=== PATIENT | female | born 1980 | race Caucasian/White ===

== ENCOUNTER 2021-05-23 07:34 | Day surgery (SDC) | payer OTHER ==
[~2021-05-23] VITALS: Ht 154.9 cm; Wt 86.9 kg
[~2021-05-23 07:34] MED LIST: ALBU90OI INH; AMOX500 PO; AZIT250 PO; CIPR500 PO; Flomax0.4 MG PO; HYDACE5 PO; IBUP400 PO; IBUP600 PO; PENVK500 PO; PRED20 PO; PROM25 PO; Percocet 5-3251 EACH PO; Zofran Odt8 MG SL
--- NOTE | 2021-05-23 10:20 | NUR ---
Ambulatory in Day Surgery. History, Chart, Medications and Allergies reviewed before start of procedure. Lungs clear T/O to Auscultation. Patient confirms NPO status and agrees with scheduled surgery. Pre-Op teaching done. Pt verbalizes understanding. REPORTS PT MAY HAVE IV IN RIGHT ARM SHE HAS BEEN DIFFICULT TO START AN IV ON.
--- NOTE | 2021-05-23 10:59 | NUR ---
PT DIFFICULT TO GET IV. DR JOSEPH STARTED IV IN RIGHT EJ.
--- NOTE | 2021-05-23 12:07 | NUR ---
PT PLACED DENTURES BACK IN MOUTH. NO GLASSES OR HEARING AID WITH PATIENT. PT STATES READY TO LEAVE. WILL GIVE BEDSIDE REPORT TO [employer].
--- NOTE | 2021-05-23 13:23 | NUR ---
Patient up to Ambulate independently. Gait steady. Discharge instructions reviewed with patient. Patient verbalizes understanding. Copy given to patient to take home. Dressing to procedure site clean,intact with no visible swelling, erythema or bruising noted. Slight drainage to gauze with breast binder in place/drain tube not visible. Patient States Post-Procedure ride home has been arranged.
== END 2021-05-23 13:17 | disposition home or self-care (01) ==
LOC: ORSCMMR 07:34 → ORD 08:30 → ORSCMMR 13:17
PROVIDERS: Surgery
PROC: 0H9T0ZX Drainage of Right Breast, Open Approach, Diagnostic (ICD-10-PCS; principal; 2021-05-23 10:00)
DX: N61.1 Abscess of the breast and nipple (principal); A49.01 Methicillin susceptible Staphylococcus aureus infection, unspecified site; F17.210 Nicotine dependence, cigarettes, uncomplicated; E66.9 Obesity, unspecified; Z68.36 Body mass index [BMI] 36.0-36.9, adult
CPT/HCPCS: 87070; 87075; 87077; 87147; 87186; 87205; A9270; J0690; J1100; J1885; J2250; J2405; J2704; J3010; J7120